=== PATIENT | female | born 1965 | race Caucasian/White ===

== ENCOUNTER 2024-05-11 09:19 | Emergency (ER) | payer OTHER, SELFPAY ==
[2024-05-11 09:20] VITALS: BP 129/81; PULSE 123; RESP 18; TEMP 37; O2SAT 98
[2024-05-11 09:28] VITALS: BMI 29.7
[2024-05-11 09:49] VITALS: BP 111/73; BP 123/71; BP 128/75; PULSE 106; PULSE 109; PULSE 120
--- NOTE | 2024-05-11 10:07 | EX.ED.DYSGE1 ---
HPI History of Present Illness Chief Complaint: Diarrhea Detail of Chief Complaint: Diarrhea, decreased level of consciousness and see HPI Informant: patient and spouse/S.O. Onset/Context/Timing Onset: Days Context: Sudden Onset Timing: Continuous and Waxes and wanes Quality: Profuse watery diarrhea with mucus Location: GI Current Severity: Had a bowel movement that was watery 20 minutes prior to presentation. Maximum Severity: Severe Worsened by: Unknown Relieved by: Nothing Associated Symptoms Associated Symptoms: Decreased however conscious, thirst, dry mouth, decreased urine output and Narrative Narrative: Patient is a 59-year-old woman. She presents with profuse diarrhea. She has history of celiac disease. She was seen yesterday at [facility]. states she had a CAT scan that was interpreted as negative. She states blood work was negative. The primary informant is the since she is not awake or alert. She does open her eyes to questions and answers appropriately per . She feels warm. She does not endorse fever question chills. She denies nausea or vomiting. She has not been on an antibiotic in the past month. She has not visited anyone in a nursing facility or anyone that was diagnosed with C. difficile. She is on a PPI. states he was ill earlier in the month with GI symptoms. Patient does endorse mucus in the stool with no blood. She states is water. She cannot recall how many loose stools she has had. She denies headache. She does have history of subarachnoid hemorrhage 2010. She denies double vision blurred vision or change in vision. Denies ringing or ears decreased hearing. She denies upper respiratory tract infectious symptoms. She does endorse dry mouth, thirst. She denies cardiac or respiratory symptoms. She does endorse decreased urine output. She denies dysuria or hematuria. She denies flank pain. Patient appears pale. states she does appear pale. He is concerned because she is not awake and alert. Prior similar symptoms: Yes Recent Illness/Hospitalization: Yes [facility] Medical History (Updated 05/11/24 @ 14:[address] Alfredo Reyes MD) Celiac disease Home Medications ?Medication ?Instructions ?Recorded ?Last Taken ?Type atorvastatin 20 mg tablet 20 mg PO DAILY 05/11/24 05/11/24 History cetirizine 10 mg tablet (24Hour 10 mg PO DAILY ALLERGIES 05/11/24 Unknown History Allergy) cyanocobalamin (vitamin B-12) 1,000 mcg PO DAILY 05/11/24 05/11/24 History 1,000 mcg tablet duloxetine 60 mg capsule,delayed 60 mg PO DAILY 05/11/24 05/11/24 History release fluoride (sodium) 1.1 % dental 1 applic dental DAILY 05/11/24 Unknown History cream (Denta 5000 Plus) gabapentin 600 mg tablet 300 mg PO TID 05/11/24 05/11/24 History hyoscyamine sulfate 0.125 mg tablet 0.125 mg PO Q4H PRN diarrhea 05/11/24 Unknown History levothyroxine 100 mcg tablet 100 mcg PO DAILY 05/11/24 05/11/24 History magnesium 250 mg tablet 250 mg PO DAILY SUPPLEMENT 05/11/24 05/11/24 History metformin 500 mg tablet 500 mg PO DAILY 05/11/24 05/11/24 History metoprolol succinate 25 mg 25 mg PO DAILY 05/11/24 05/11/24 History tablet,extended release 24 hr miconazole nitrate 2 % topical 2 applic topical BID 05/11/24 Unknown History powder (Antifungal (miconazole)) montelukast 10 mg tablet 10 mg PO QHS 05/11/24 Unknown History omeprazole 40 mg capsule,delayed 40 mg PO DAILY 05/11/24 05/11/24 History release ondansetron 8 mg disintegrating 8 mg PO Q8H PRN nausea and vomiting 05/11/24 Unknown History tablet potassium chloride 10 mEq 10 meq PO BID 05/11/24 05/11/24 History tablet,extended release(part/cryst) promethazine 25 mg tablet 25 mg PO Q6H PRN nausea 05/11/24 Unknown History trazodone 100 mg tablet 100 mg PO QHS 05/11/24 Unknown History trihexyphenidyl 2 mg tablet 3 mg PO BID 05/11/24 05/11/24 History zonisamide 100 mg capsule 100 - 200 mg PO BID 05/11/24 05/11/24 History Allergy/AdvReac Type Severity Reaction Status Date / Time codeine Allergy Hives Verified 05/11/24 09:23 Sulfa (Sulfonamide Allergy Hives Verified 05/11/24 09:23 Antibiotics) gluten AdvReac Abd Verified 05/11/24 09:23 cramps/diarrhea Social History (Updated 05/11/24 @ 10:[address] Alfredo Reyes MD) household members: spouse Smoking Status: Never smoker ROS ROS ED Constitutional Constitutional ED: Reports chills; Denies fever(s), subjective or sweats Eyes Eyes: Denies blurry vision or change in vision ENT ENT ED: Denies ear pain, rhinorrhea or sore throat Cardiovascular Cardiovascular: Denies chest pain or palpitations Respiratory/Chest Respiratory/Chest: Denies cough, dyspnea or dyspnea on exertion Gastrointestinal Gastrointestinal: Reports abdominal pain and diarrhea; Denies constipation, melena, nausea or vomiting Genitourinary Genitourinary ED: Denies dysuria, hematuria or urinary frequency Musculoskeletal Musculoskeletal: Denies arthralgias or myalgias Integumentary Denies rash Neurologic Neurologic: Reports weakness; Denies headache(s) or paresthesias Psychiatric Psychiatric: Denies anxiety Endocrine Endocrinology: Denies cold intolerance or heat intolerance Hematologic/Lymphatic Hematologic/Lymphatic: Reports systems reviewed and no addt'l complaints, except as documented EXAM Physical Exam Const Vital Signs: 05/11/24 09:20 05/11/24 09:49 05/11/24 11:00 Temperature 98.6 F 98 F Temperature Source Oral Oral Pulse Rate 123 H 102 H Pulse Rate [Lying] 106 H Pulse Rate [Sitting (for 1 minute prior to obtaining)] 109 H Pulse Rate [Standing (for 1 minute prior to obtaining)] 120 H Respiratory Rate 18 23 H Blood Pressure 129/81 H 124/92 H Blood Pressure [Lying] 123/71 H Blood Pressure [Sitting (for 1 minute prior to obtaining)] 128/75 H Blood Pressure [Standing (for 1 minute prior to obtaining)] 111/73 Blood Pressure Mean 97 102 Blood Pressure Mean [Lying] 88 Blood Pressure Mean [Sitting (for 1 minute prior to obtaining)] 92 Blood Pressure Mean [Standing (for 1 minute prior to obtaining)] 85 Pulse Ox 98 99 Oxygen Delivery Method Room Air Room Air 05/11/24 12:42 Temperature Temperature Source Pulse Rate 97 Pulse Rate [Lying] Pulse Rate [Sitting (for 1 minute prior to obtaining)] Pulse Rate [Standing (for 1 minute prior to obtaining)] Respiratory Rate 20 H Blood Pressure 115/62 Blood Pressure [Lying] Blood Pressure [Sitting (for 1 minute prior to obtaining)] Blood Pressure [Standing (for 1 minute prior to obtaining)] Blood Pressure Mean 79 Blood Pressure Mean [Lying] Blood Pressure Mean [Sitting (for 1 minute prior to obtaining)] Blood Pressure Mean [Standing (for 1 minute prior to obtaining)] Pulse Ox 96 Oxygen Delivery Method Vital signs noted and marked for tachycardia. She is not febrile. Positive well nourished and well developed Constitutional Narrative: Patient appears pale and ill. She is not awake or alert. She does open her eyes to questions and answers questions appropriately and confirms. The only question she answered incorrectly was that she thought it was Sunday. General Appearance ED: well developed and pallor; Negative for cyanotic, diaphoretic or NAD HEENT Reports dry mucous membranes HEENT Narrative: Head is atraumatic normocephalic. Ears normal. Nares patent. Mouth ED: Yes dry mucous membranes Mouth: dry mucous membranes Eyes PERRL and EOMs intact bilaterally General Eye ED: Negative for pale conjunctiva Neck no lymphadenopathy, supple and no JVD Resp normal respiratory effort and clear to auscultation bilaterally Cardio regular rhythm, S1 normal heart sound, S2 normal heart sound and no murmurs Rate: tachycardic GI normal to inspection, nondistended, normoactive bowel sounds, non-tender, non-distended and no masses; Negative for hepatosplenomegaly Palpation: soft Back/Spine no CVA tenderness Extremity normal to inspection General Extremety ED: Negative for edema or tenderness General Extremity: Negative for edema Neuro Neuro Narrative: Alert and oriented to name and place. She did know the month and year did not know the day of the week. Motor Exam: strength 5/5 throughout Psych mental status grossly normal Skin no rashes or lesions noted, no wounds and No skin turgor normal General Skin Exam: pallor; Negative for jaundice MDM MDM MDM Narrative Medical decision making narrative: Patient with enteritis. Need to consider C. difficile versus viral versus bacterial. Stool for C. difficile was ordered. Appropriate blood work was ordered as well to rule stratify in the event that the C. difficile toxin is positive. Electrolyte panel was obtained to assess BUN/creatinine CO2 anion gap since clinically she is significantly dehydrated with tachycardia. For this reason 2 L of normal saline was ordered. There are no prior records at [facility]. Lab Data Attestation: I reviewed the patient's lab results. Lab results narrative: CBC is remarkable for mild thrombocytopenia and slight shift. Basic metabolic panel is remarkable for a nonanion gap acidosis. CO2 is 16.5 with a normal anion gap. BUN and creatinine are normal, and the BUN to creatinine ratio is normal. Labs: Laboratory Results - last 24 hr 05/11/24 09:56 WBC 5.1 RBC 4.28 Hgb 12.2 Hct 36.4 L MCV 85.0 MCH 28.5 MCHC 33.5 RDW Std Deviation 42.0 RDW Coeff of Nick 13.5 Plt Count 143 L MPV 8.9 Immature Gran % (Auto) 0.200 Neut % (Auto) 80.6 H Lymph % (Auto) 7.3 L Leslie % (Auto) 11.9 H Eos % (Auto) 0.0 Baso % (Auto) 0.0 Absolute Neuts (auto) 4.1 Absolute Lymphs (auto) 0.37 L Nucleated RBC % 0 Sodium 136 Potassium 3.2 L Chloride 106 Carbon Dioxide 16.5 L Anion Gap 13 BUN 13 Creatinine 0.88 Estim Creat Clear Calc 74.91 Est GFR (MDRD) Non-Af 76 BUN/Creatinine Ratio 14.4 Glucose 121 H Calcium 8.3 Treatment and Re-Evaluation :: Patient was reassessed at 1117. She is now awake and alert. She has no urge to urinate. Greater than 1 L of the 2 L has infused. She has no urge to urinate. She did provide a stool specimen. Awaiting results. Patient was informed at 1305 that her stool was negative for C. difficile. She still has not urinated and has no urge to urinate. Liter of D5 normal saline was ordered. Comments:: Spoke with patient and at 1406. She has urinated. She would be discharged once the D5 normal saline has infused. She presently has no question. did have questions. They were answered. 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 SPIT OUT AFTER. trazodone 100 mg tablet 100 mg PO QHS trihexyphenidyl 2 mg tablet 3 mg PO BID Rx Instructions: TAKE 1 1/2 TALBETS WITH 1ST AND 3RD DOSE. TAKE 1 TABLET WITH 2ND DOSE. metformin 500 mg tablet 500 mg PO DAILY atorvastatin 20 mg tablet 20 mg PO DAILY omeprazole 40 mg capsule,delayed release(DR/EC) 40 mg PO DAILY levothyroxine 100 mcg tablet 100 mcg PO DAILY metoprolol succinate 25 mg tablet extended release 24 hr 25 mg PO DAILY potassium chloride 10 mEq tablet,ER particles/crystals 10 meq PO BID cyanocobalamin (vitamin B-12) 1,000 mcg tablet 1,000 mcg PO DAILY zonisamide 100 mg capsule 100 - 200 mg PO BID Rx Instructions: TAKE 1 CAPSULE IN THE MORNING AND 2 CAPSULES AT BEDTIME promethazine 25 mg tablet 25 mg PO Q6H PRN (Reason: nausea) duloxetine 60 mg capsule,delayed release(DR/EC) 60 mg PO DAILY ondansetron 8 mg tablet,disintegrating 8 mg PO Q8H PRN (Reason: nausea and vomiting) montelukast 10 mg tablet 10 mg PO QHS miconazole nitrate [Antifungal (miconazole)] 2 % powder 2 applic topical BID Rx Instructions: APPLY TO GROIN AND BREASTS cetirizine [24Hour Allergy] 10 mg tablet 10 mg PO DAILY magnesium 250 mg tablet 250 mg PO DAILY Primary Care Provider: Russell Thomas Referrals: Russell Thomas MD [Primary Care Provider] - 3-5 Days if not improving Activity Restrictions/Additional Instructions: Take Imodium as instructed on box or vial. You need to increase your fluid intake Print Language: [place] Rican Disposition Disposition: Home, Self Care
[2024-05-11 10:08] LABS: Absolute Lymphocyte Count 0.37 X10^3/uL (0.83-4.51); Absolute Neutrophil Count 4.1 X10^3/uL (2.0-7.7); Hematocrit 36.4 % (37-47); Hemoglobin 12.2 g/dL (12.0-15.0); Lymphocyte # 0.37 X10^3/ul (0.83-4.51); Lymphocyte % 7.3 % (19-41); Mean Corp Hgb Conc 33.5 g/dL (32-36); Mean Corpuscular Hgb 28.5 pg (27.0-32.0); Mean Platelet Vol. 8.9 fl (6.2-12.0); Monocyte% 11.9 % (0-10); NRBC Flagged by Analyzer 0 % (0-5); Neutrophil # 4.07 X10^3/uL (2.7-7.7); Neutrophil % 80.6 % (47-70); POSITIVE DIFFERENTIAL YES; Platelet Count 143 K/mm3 (150-450); RBC Distribution Width CV 13.5 % (11.6-14.6); Red Blood Count 4.28 M/mm3 (4.2-5.4); White Blood Count 5.1 K/mm3 (4.4-11.0)
[2024-05-11] MEDS: 0.9% Normal Saline (1000mL) 1,000 ML 1000 ML IV ×2 (10:09→10:57)
[2024-05-11 10:47] LABS: Anion Gap 13 (5-15); BUN 13 mg/dL (4-19); BUN/Creat Ratio 14.4 RATIO (10-20); Calcium,Total 8.3 mg/dL (7.6-11.0); Carbon Dioxide 16.5 mmol/L (21.0-32.0); Chloride 106 mmol/L (98-108); Creatinine, Serum 0.88 mg/dL (0.70-1.20); EST Glomerular Filtration Rate 76 (>60); Estimated Creatinine Clearance 74.91 ml/min (50-250); Glucose 121 mg/dL (70-99); Potassium 3.2 mmol/L (3.3-5.1); Sodium Level 136 mmol/L (133-145)
[2024-05-11 11:00] VITALS: BP 124/92; PULSE 102; RESP 23; TEMP 36.6; O2SAT 99
[2024-05-11 12:42] VITALS: BP 115/62; PULSE 97; RESP 20; O2SAT 96
[2024-05-11] MEDS: Acetaminophen 325 MG Tablet 650 MG PO (13:25)
[2024-05-11] MEDS: Dextrose 5%/0.9% NaCl 1,000 ML 999 ML IV (13:33)
[2024-05-11 14:00] VITALS: BP 113/65; PULSE 96; RESP 20; O2SAT 97
[2024-05-11 14:52] VITALS: BP 115/76; PULSE 79; RESP 14; TEMP 36.1; O2SAT 100
== END 2024-05-11 14:53 | disposition home or self-care (01) ==
PROVIDERS: Emergency Provider Emergency Medicine; PCP Family Medicine; Visit Provider Emergency Medicine
DX: K52.9 Noninfective gastroenteritis and colitis, unspecified (principal); E88.89 Other specified metabolic disorders; E86.0 Dehydration; E87.20 Acidosis, unspecified; K90.0 Celiac disease; E87.6 Hypokalemia; R00.0 Tachycardia, unspecified; D69.6 Thrombocytopenia, unspecified; Z79.84 Long term (current) use of oral hypoglycemic drugs; Z79.890 Hormone replacement therapy; Z79.899 Other long term (current) drug therapy
CPT/HCPCS: 80048; 85025; 87493; 96361; 96365; 99284; A4216

== ENCOUNTER 2024-12-11 09:51 | Emergency (ER) | payer OTHER, SELFPAY ==
[2024-12-11 09:51] VITALS: BP 121/70; PULSE 74; RESP 14; TEMP 36.2; O2SAT 98; BMI 37.6
[2024-12-11 10:51] VITALS: BP 123/77; PULSE 66; O2SAT 100
[2024-12-11 11:00] VITALS: BP 123/77; PULSE 66; O2SAT 100
--- NOTE | 2024-12-11 11:17 | CT_ITS ---
PROCEDURE: BRAIN/HEAD WITHOUT CONTRAST 12/11/2024 REASON FOR EXAM: TRAUMA TECHNIQUE: Procedure Code: CTBR Modality: CT Procedure: BRAIN/HEAD WITHOUT CONTRAST Coronal and Sagittal reconstruction series were provided. One or more dose reduction techniques were used (e.g., Automated exposure control, adjustment of the mA and/or kV according to patient size, use of iterative reconstruction technique. RADIATION DOSE SUMMARY: CTDlvol: 44.99 mGy DLP: 796.11 mGycm COMPARISON: None. FINDINGS: Brain: A relatively small left basal ganglia/frontal white matter area of hypodensity is seen, most consistent with remote infarction. No intracranial hemorrhage, mass, or mass effect is seen. No extra-axial fluid collection is evident. No orbital pathology is noted. CSF Spaces: Normal Sinuses/Mastoids: Clear at visualized levels Bones: No fracture site is seen. CT/Brain/Head without Contrast IMPRESSION: 1. No acute intracranial process is seen. 2. No fracture site is evident. Reading Location: [id number]
--- NOTE | 2024-12-11 11:59 | EX.ED.GENINJ ---
HPI History of Present Illness Chief Complaint: Head Injury Informant: patient and spouse/S.O. Narrative Narrative: Patient is a 59-year-old female with history of spontaneous subarachnoid hemorrhage (treated with a drain and thought to be secondary to an AVM) not on any blood thinners presenting for evaluation after head injury. Her and someone else were moving very heavy th [employer] desk when a piece fell off and hit her directly on the top of her head. No loss of conscious. She does note that she felt a little dizzy at the time and feels like she has a goose egg on the top right of her scalp. Notes her headache is improving since arriving to the emergency room. Denies any associate numbness or tingling. Denies any acute vision changes. No other complaints or concerns at this time. Came in for evaluation of possible intracranial trauma. [facility] Medical History PCOS (polycystic ovarian syndrome) Hx of subarachnoid hemorrhage Celiac disease Home Medications Medication Instructions Recorded Last Taken Type atorvastatin 20 mg tablet 20 mg PO DAILY 05/11/24 05/11/24 History cetirizine 10 mg tablet (24Hour 10 mg PO DAILY ALLERGIES 05/11/24 Unknown History Allergy) cyanocobalamin (vitamin B-12) 1,000 mcg PO DAILY 05/11/24 05/11/24 History 1,000 mcg tablet duloxetine 60 mg capsule,delayed 60 mg PO DAILY 05/11/24 05/11/24 History release fluoride (sodium) 1.1 % dental 1 applic dental DAILY 05/11/24 Unknown History cream (Denta 5000 Plus) gabapentin 600 mg tablet 300 mg PO TID 05/11/24 05/11/24 History hyoscyamine sulfate 0.125 mg tablet 0.125 mg PO Q4H PRN diarrhea 05/11/24 Unknown History levothyroxine 100 mcg tablet 100 mcg PO DAILY 05/11/24 05/11/24 History magnesium 250 mg tablet 250 mg PO DAILY SUPPLEMENT 05/11/24 05/11/24 History metformin 500 mg tablet 500 mg PO DAILY 05/11/24 05/11/24 History metoprolol succinate 25 mg 25 mg PO DAILY 05/11/24 05/11/24 History tablet,extended release 24 hr miconazole nitrate 2 % topical 2 applic topical BID 05/11/24 Unknown History powder (Antifungal (miconazole)) montelukast 10 mg tablet 10 mg PO QHS 05/11/24 Unknown History omeprazole 40 mg capsule,delayed 40 mg PO DAILY 05/11/24 05/11/24 History release ondansetron 8 mg disintegrating 8 mg PO Q8H PRN nausea and vomiting 05/11/24 Unknown History tablet potassium chloride 10 mEq 10 meq PO BID 05/11/24 05/11/24 History tablet,extended release(part/cryst) promethazine 25 mg tablet 25 mg PO Q6H PRN nausea 05/11/24 Unknown History trazodone 100 mg tablet 100 mg PO QHS 05/11/24 Unknown History trihexyphenidyl 2 mg tablet 3 mg PO BID 05/11/24 05/11/24 History zonisamide 100 mg capsule 100 - 200 mg PO BID 05/11/24 05/11/24 History Allergy/AdvReac Type Severity Reaction Status Date / Time codeine Allergy Hives Verified 05/11/24 09:23 Sulfa (Sulfonamide Allergy Hives Verified 05/11/24 09:23 Antibiotics) gluten AdvReac Abd Verified 05/11/24 09:23 cramps/diarrhea Social History household members: spouse Smoking Status: Never smoker ROS ROS ED Constitutional Constitutional ED: Denies chills or fever(s) Eyes Eyes: Denies blurry vision or change in vision Respiratory/Chest Respiratory/Chest: Denies dyspnea Gastrointestinal Gastrointestinal: Denies nausea or vomiting Musculoskeletal Musculoskeletal: Denies arthralgias, myalgias or neck pain Integumentary Denies rash Neurologic Neurologic: Reports headache(s); Denies paresthesias or weakness Psychiatric Psychiatric: Denies anxiety Hematologic/Lymphatic Hematologic/Lymphatic: Denies easy bleeding or easy bruising EXAM Physical Exam Const Vital Signs: 12/11/24 09:51 12/11/24 10:08 12/11/24 10:51 Temperature 97.1 F L Temperature Source Temporal Pulse Rate 74 66 Respiratory Rate 14 Respiratory Effort Normal Non-Labored Blood Pressure 121/70 H 123/77 H Blood Pressure Mean 87 92 Pulse Ox 98 100 Oxygen Delivery Method Room Air Room Air 12/11/24 11:00 Temperature Temperature Source Pulse Rate 66 Respiratory Rate Respiratory Effort Blood Pressure 123/77 H Blood Pressure Mean 92 Pulse Ox 100 Oxygen Delivery Method Room Air Positive well nourished and well developed General Appearance ED: well developed and NAD HEENT Reports TM's clear HEENT Narrative: No signs of a basilar skull fracture. No facial trauma appreciated. Tenderness to palpation of the right parietal scalp with some mild soft tissue swelling present. No palpable skull fracture appreciated. Tympanic Membrane ED: Yes TM's clear Eyes PERRL and EOMs intact bilaterally Neck full ROM Neck Narrative: No step-off sign. General: Negative for tenderness Chest Wall inspection of chest normal Resp normal respiratory effort and clear to auscultation bilaterally Cardio regular rhythm Rate: regular rate Back/Spine Thoracic Spine / Upper Back: Negative for thoracic spinal tenderness Neuro oriented x3, CN's II-XII intact bilaterally, moves all extremities, no focal motor deficits and no sensory deficits noted Daniel Coma Scale: document GCS findings Spontaneous Obeys Commands Oriented 15 Psych mental status grossly normal and thought process normal Skin no rashes or lesions noted and no wounds MDM MDM MDM Narrative Medical decision making narrative: Patient evaluated for close head injury after a heavy piece of a table and hit her directly on the top of her head. No loss conscious reported. Differential includes not limited to skull fracture, contusion, concussion and intracranial hemorrhage. She is having neck tenderness, distracting injury and normal nutrition therapist strength bilaterally with a normal neurologic exams I do not think she requires any CT of the neck imaging. CT of the brain is obtained which does not show any acute process. Patient given close head injury precautions. Discharged home in stable condition. Given dose of Tylenol for pain control emergency room. Radiography Diagnostic Testing: Clinical Impression(s) from Imaging Studies Brain CT 12/11/24 11:17 IMPRESSION: 1. No acute intracranial process is seen. 2. No fracture site is evident. Reading Location: [address] Discharge Plan Triage Chief Complaint: Head Injury ED Provider: Karyna Barajas Dx/Rx/DC Orders Clinical Impression: Closed head injury Instructions: ED Scalp Contusion, ED Head Injury (Adult) Prescriptions: No Action gabapentin 600 mg tablet 300 mg PO TID hyoscyamine sulfate 0.125 mg tablet 0.125 mg PO Q4H PRN (Reason: diarrhea) fluoride (sodium) [Denta 5000 Plus] 1.1 % cream 1 applic dental DAILY Rx Instructions: USE TO BRUSH TEETH FOR 2 MINUTES IN MORNING AND NIGHT. SPIT OUT AFTER. trazodone 100 mg tablet 100 mg PO QHS trihexyphenidyl 2 mg tablet 3 mg PO BID Rx Instructions: TAKE 1 1/2 TALBETS WITH 1ST AND 3RD DOSE. TAKE 1 TABLET WITH 2ND DOSE. metformin 500 mg tablet 500 mg PO DAILY atorvastatin 20 mg tablet 20 mg PO DAILY omeprazole 40 mg capsule,delayed release(DR/EC) 40 mg PO DAILY levothyroxine 100 mcg tablet 100 mcg PO DAILY metoprolol succinate 25 mg tablet extended release 24 hr 25 mg PO DAILY potassium chloride 10 mEq tablet,ER particles/crystals 10 meq PO BID cyanocobalamin (vitamin B-12) 1,000 mcg tablet 1,000 mcg PO DAILY zonisamide 100 mg capsule 100 - 200 mg PO BID Rx Instructions: TAKE 1 CAPSULE IN THE MORNING AND 2 CAPSULES AT BEDTIME promethazine 25 mg tablet 25 mg PO Q6H PRN (Reason: nausea) duloxetine 60 mg capsule,delayed release(DR/EC) 60 mg PO DAILY ondansetron 8 mg tablet,disintegrating 8 mg PO Q8H PRN (Reason: nausea and vomiting) montelukast 10 mg tablet 10 mg PO QHS miconazole nitrate [Antifungal (miconazole)] 2 % powder 2 applic topical BID Rx Instructions: APPLY TO GROIN AND BREASTS cetirizine [24Hour Allergy] 10 mg tablet 10 mg PO DAILY magnesium 250 mg tablet 250 mg PO DAILY Primary Care Provider: Russell Thomas Referrals: Russell Thomas MD [Primary Care Provider, Family Practice] Activity Restrictions/Additional Instructions: Your CT of the brain did not show any serious trauma/injury. Please alternate ibuprofen and Tylenol as needed for pain control. You might develop symptoms of a concussion which include trouble concentrating, headaches, nausea or fatigue. Make sure you are getting plenty of rest with this. Print Language: Croatian Disposition Disposition: Home, Self Care
[2024-12-11 12:00] VITALS: BP 125/77; PULSE 66; PULSE 68; RESP 12; RESP 16; TEMP 36.6; O2SAT 100; O2SAT 99
[2024-12-11 12:12] VITALS: BP 125/77; PULSE 66; RESP 12; TEMP 36.6; O2SAT 100
== END 2024-12-11 12:13 | disposition home or self-care (01) ==
PROVIDERS: Emergency Provider Emergency Medicine; PCP Family Medicine; Visit Provider Emergency Medicine
DX: S09.90XA Unspecified injury of head, initial encounter (principal); W20.8XXA Other cause of strike by thrown, projected or falling object, initial encounter; Z79.84 Long term (current) use of oral hypoglycemic drugs; Z79.890 Hormone replacement therapy; Z79.899 Other long term (current) drug therapy
CPT/HCPCS: 70450; 99282